=== PATIENT | female | born 1935 | race Caucasian/White ===

== ENCOUNTER 2018-08-04 10:50 | Outpatient (CLI) | payer MEDICARE ==
--- NOTE | 2018-08-04 11:24 | RAD ---
XR Pelvis AP STANDARD HISTORY: Pelvic pain. COMPARISON: None. FINDINGS: The bones appear demineralized. Postoperative changes of the lower lumbar spine and right h ip are seen. There are no signs of fracture the bony pelvic ring. SI joints appear symmetric and unchanged in appearance since the 2013 study. IMPRESSION: No acute changes.
--- NOTE | 2018-08-04 12:23 | RAD ---
SACRUM AND COCCYX 2 VIEWS STANDARD: HISTORY: Sacroiliitis. COMPARISON: None. FINDINGS: Mild degenerative changes of both SI joints, worse on the left than the right. Pubic symphysis is mi ldly narrowed. Femoral nail through the right femur. Moderate bilateral acetabular osteophyte formation. Enthesophyte changes right iliac wing. 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 Incomplete evaluation of IVC filter. IMPRESSION: 1. 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 2. 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 POS: [facility]
== END 2018-08-04 10:51 | disposition home or self-care (01) ==
LOC: RAD 10:50
PROVIDERS: ATTEND Nurse Practitioner Family
DX: M46.1 Sacroiliitis, not elsewhere classified (principal); M47.816 Spondylosis without myelopathy or radiculopathy, lumbar region; M53.3 Sacrococcygeal disorders, not elsewhere classified
CPT/HCPCS: 72170; 72220

== ENCOUNTER 2019-04-12 08:15 | Day surgery (SDC) | payer MEDICARE ==
[2019-04-11 14:09] VITALS: BMI 20.7
--- NOTE | 2019-04-12 11:21 | OP ---
DATE OF PROCEDURE: 04/12/2019 PROCEDURES PERFORMED: Esophagogastroduodenoscopy with dilatation and colonoscopy with polypectomy. PREPROCEDURE DIAGNOSES: Chronic constipation, occult blood positive in stool, chronic anticoagulation use, normal CBC, and recurrent dysphagia. POSTPROCEDURE DIAGNOSES: 1. Vague narrowing of the lower esophageal sphincter consistent with possibly a peptic stricture, dilated with 54-Czech Huggins dilator with good effect. 2. Otherwise normal esophagogastroduodenoscopy. 3. Colonoscopy with fairly poor prep with retained stool occluding good visualization in some areas of the colon, but no overt large masses were seen. 4. A 7 mm sessile polyp was noted in the rectum, which was removed by hot snare polypectomy. 5. Otherwise normal colonoscopy. RECOMMENDATIONS: 1. The patient has been instructed in the past to use a PPI daily, which she does not. I have reiterated that to her that she should use a PPI daily to help her reflux and her dysphagia. 2. I have given her a prescription for omeprazole 40 mg daily. 3. MiraLAX daily. 4. Await histopathology. On path, if this is a benign polyp, we would not recommend followup colonoscopy in the future as this is very small and she is 83. ANESTHESIA: TIVA. PROCEDURE IN DETAIL: The patient was informed of the risks, benefits, and possible complications of endoscopy including perforation, reaction to medication, aspiration, and informed consent was obtained. The patient was brought to the endoscopy suite, where she was sedated in gradual fashion. Once she was comfortable, a bite-block was placed inside the orifice. The endoscope was advanced through the esophagus, stomach, and second and third portions of duodenum and slowly removed. The esophagus was notable for slight narrowing at the GE junction, but the scope passes easily. It was dilated with 54-Czech Huggins dilator with good effect. Second-look showed no evidence of perforation. Retroflexed views in the stomach were normal. Forward views in the stomach were normal. The duodenum was normal and the scope was removed. The patient was turned to the room and rectal examination was performed, which was normal. The endoscope was advanced into the anal canal through the colon to the cecum, which was identified by ileocecal valve and the appendiceal orifice. The scope was then slowly removed. There were some areas of formed stool that we could not be completely cleared. There did not appear to be any large masses in the colon. There was one polyp in the rectum, which was removed by hot snare polypectomy, it was 7 mm in size and sessile. Retroflexed views were otherwise normal. The scope was removed. The patient tolerated the procedure well with no complications. The patient could resume Eliquis in 3 days. Job ID: [id number]
== END 2019-04-12 12:27 | disposition home or self-care (01) ==
LOC: SDC 08:15
PROVIDERS: ATTEND Internal Medicine Gastroenterology
PROC: 0DBP8ZZ Excision of Rectum, Via Natural or Artificial Opening Endoscopic (ICD-10-PCS; principal; 2019-04-12)
PROC: 0DJ08ZZ Inspection of Upper Intestinal Tract, Via Natural or Artificial Opening Endoscopic (ICD-10-PCS; 2019-04-12)
PROC: 0D757ZZ Dilation of Esophagus, Via Natural or Artificial Opening (ICD-10-PCS; 2019-04-12)
DX: K62.1 Rectal polyp (principal); K59.09 Other constipation; K22.2 Esophageal obstruction; G89.29 Other chronic pain; M54.9 Dorsalgia, unspecified; Z79.01 Long term (current) use of anticoagulants; Z79.899 Other long term (current) drug therapy; Z88.2 Allergy status to sulfonamides
CPT/HCPCS: 88305